=== PATIENT | female | born 1985 | race Two or more races ===

== ENCOUNTER 2016-07-18 09:21 | Emergency (ER) | payer OTHER ==
[2016-07-18 10:29] VITALS: BP 97/68; PULSE 80; RESP 16; TEMP 98.1; O2SAT 100
[2016-07-18] MEDS ORDERED: IBUPROFEN 600 MG TAB PO ONE (10:29)
--- NOTE | 2016-07-18 10:55 | UCPHY ---
H & P Time Seen by Provider: 07/18/16 10:54 Patient Type: New HPI/ROS: CHIEF COMPLAINT: Congestion, fever, cough. HISTORY OF PRESENT ILLNESS: The patient is a 30-year-old female who presents with congestion and fever for the last 3 days. She has associated dry cough, sinus pressure, and headache that keeps her awake at night. She denies sore throat, lymphadenopathy, vomiting, diarrhea, or other complaints. 3 or 4 weeks ago she had a week of influenza-like symptoms including headache, myalgia, fever, and chills. These resolved completely on their own, at which time there was an intercurrent span of time at which time she felt well. She did not get a flu shot this year. She has been treating symptoms with Mucinex, Sudafed, and Ibuprofen. REVIEW OF SYSTEMS: Constitutional: As above. Eyes: No dischg. ENT: No sore throat. Cardiovascular: No chest pain, no palpitations. Respiratory: As above. Gastrointestinal: No nausea vomiting or diarrhea. No abdominal pain. Genitourinary: No flank pain. Musculoskeletal: No back pain. Skin: No rashes. Neurological: As above. 10 point ROS otherwise negative Past Medical/Surgical History: Denies. Social History: Nonsmoker. Smoking Status: Never smoked Physical Exam: General Appearance: Alert, no distress. Afebrile. Normal phonation. No respiratory distress. Eyes: Pupils equal and round no pallor or injection. No icterus ENT, Mouth: Mucous membranes moist. Pharynx not erythematous and without exudate. TM Clear. Maxillary sinus on the left is tender, more so when she leans forward, but alos to direct palpation over same. Neck: No adenopathy. Supple. No JVD. Trachea in midline. Respiratory: There are no retractions, lungs are clear to auscultation. Cardiovascular: Regular rate and rhythm. Abdomen: Soft and nontender, no masses, bowel sounds normal. Femoral pulses equal. Neurological: Ox3. No motor weakness. Sensation intact. Gait nl. Skin: Warm and dry, no rashes. Musculoskeletal: No joint swelling. Extremities: No edema. Homans sign negative. No cords. Psychiatric: Patient is oriented X 3, there is no agitation Constitutional: Initial Vital Signs Temperature (C) 36.7 C 07/18/16 10:27 Heart Rate 80 07/18/16 10:27 Respiratory Rate 16 07/18/16 10:27 Blood Pressure 97/68 L 07/18/16 10:27 O2 Sat (%) 100 07/18/16 10:27 O2 Delivery Mode Room Air Allergies/Adverse Reactions: No Known Allergies Allergy (Verified 07/18/16 10:27) Home Medications: Medication Instructions Recorded Amox Tr/K Clav (Augmentin) 500 mg PO BID #10 tab 07/18/16 [Augmentin 500/125 MG TAB (*)] Amoxicillin 1,500 mg PO BID 5 Days 07/18/16 Benzonatate 200 mg PO TID PRN #28 capsule 07/18/16 Medical Decision Making Differential Diagnosis: Differential diagnosis includes but is not limited to the following: URI, pharyngitis, strep pharyngitis, otitis media, sinusitis, bronchitis, pneumonia. - Data Points Medications Given: Discontinued Medications Ibuprofen (Motrin) 600 mg PO EDNOW ONE Stop: 07/18/16 10:30 Last Admin: 07/18/16 10:32 Dose: 600 mg Departure - Departure Disposition: Home, Routine, Self-Care Clinical Impression: Sinusitis Qualifiers: Sinusitis location: maxillary Chronicity: acute Recurrence: not specified as recurrent Qualified Code(s): J01.00 - Acute maxillary sinusitis, unspecified Condition: Good Instructions: Sinusitis (ED) Additional Instructions: Take the antibiotics as prescribed. Use [id number] Afrin for nasal congestion. Try Delsym 4 tsp twice per day for cough or use benzonatate. Do not use in combination. This is for the cough for symptomatic relief. Drink plenty of fluids and be sure to get rest. Return for any serious worsening of condition. Referrals: NONE *PRIMARY CARE P,. [Primary Care Provider] - As per Instructions Prescriptions: Amox Tr/K Clav (Augmentin) [Augmentin 500/125 MG TAB (*)] 500 mg PO BID #10 tab Amoxicillin 1,500 mg PO BID 5 Days Benzonatate 200 mg PO TID PRN #28 capsule PRN Reason: Cough, Moderate - PQRS PQRS Measurement: Does not apply. Report Scribed for: Arnold Mitchell Report Scribed by: Bobby Watts Date of Report: 07/18/16 Time of Report: 11:07 Physician Review and Approval Statement: 07/18/16 11:07 Portions of this note were transcribed by a biomedical equipment tech. I personally performed a history, physical exam, medical decision making, and confirmed accuracy of information the transcribed note.
== END 2016-07-18 11:29 | disposition home or self-care (01) ==
LOC: CED 09:21
DX: R05 Cough (principal); R51 Headache; R50.9 Fever, unspecified; R09.81 Nasal congestion
CPT/HCPCS: G0463-PO